=== PATIENT | male | born 1970 | race Caucasian/White ===

== ENCOUNTER → 2020-10-15 | Outpatient (CLI) ==
[~2020-10-15] MED LIST: ERGO500029; GABA600T4 PO; HORI600T; OXYC1TAB23
== END ==
LOC: M LABSMTC 12:06 → EDUNIT# 12:20
PROVIDERS: ATTEND Anesthesiology
DX: Z01.818 Encounter for other preprocedural examination (principal); Z20.822 Contact with and (suspected) exposure to COVID-19

== ENCOUNTER 2020-10-20 08:54 | Day surgery (SDC) | payer OTHER ==
[~2020-10-20] VITALS: Ht 198.1 cm; Wt 97.4 kg
[~2020-10-20 08:54] MED LIST changes: -GABA600T4 PO; +LIDOCAINE 1% MDV 20ML VIAL SQ PRN; +LR 1,000 ML IV ONE
[2020-10-20] MEDS ORDERED: GABA600T4 PO (09:09)
[2020-10-20 09:54] LABS: HEMATOCRIT 36.2 % (42.0-52.0); HEMOGLOBIN 11.1 g/dl (13.5-17.5); MEAN CORPUSCULAR HEMOGLOBIN 22.9 pg (27.0-33.0); MEAN CORPUSCULAR HGB CONC 30.7 g/dl (32.0-36.5); MEAN CORPUSCULAR VOLUME 74.6 fl (80.0-96.0); PLATELET COUNT, AUTOMATED 212 10^3/uL (150-450); RED BLOOD COUNT 4.85 10^6/uL (4.30-6.10); WHITE BLOOD COUNT 3.6 10^3/uL (4.0-10.0)
[2020-10-20] MEDS ORDERED: propofoL 200 MG/20 ML VIAL As Ordered ONE (10:24)
[2020-10-20] MEDS ORDERED: fentaNYL 100 MCG/2 ML INJECTION (J3010) As Ordered ONE (10:24)
[2020-10-20] MEDS ORDERED: ONDANSETRON 4MG/2ML VIAL As Ordered ONE (10:24)
[2020-10-20] MEDS ORDERED: dexameTHASONE 4 MG/ML 1ML VIAL (J1100 PER 1MG) As Ordered ONE ×2 (10:24→10:25)
[2020-10-20] MEDS ORDERED: MIDAZOLAM INJ 2MG/2ML VIAL (J2250 PER 1MG) As Ordered ONE (10:24)
[2020-10-20] MEDS ORDERED: ROCURONIUM BROMIDE 50 MG/5 ML VIAL As Ordered ONE (10:24)
[2020-10-20] MEDS ORDERED: LIDOCAINE 2% 100MG/5ML SDV (FOR ANES.) As Ordered ONE (10:24)
[2020-10-20] MEDS ORDERED: LIDOCAINE W/EPINEPHRINE 1% 20ML VIAL As Ordered ONE (11:42)
[2020-10-20] MEDS ORDERED: EPINEPHrine 1MG/ML INJ 30ML MD-VIAL As Ordered ONE (11:42)
[2020-10-20] MEDS ORDERED: METHYLENE BLUE 0.5% (5MG/ML) 10 ML AMP (PROVAYBLUE) As Ordered ONE (11:43)
[2020-10-20] MEDS ORDERED: SUGAMMADEX SODIUM 500 MG/5 ML VIAL (BRIDION) As Ordered ONE (12:13)
[2020-10-20] MEDS ORDERED: ACETAMINOPHEN 1000MG 100ML IV BTL (OFIRMEV) (J0131 PER 10MG) As Ordered ONE (12:13)
[2020-10-20] MEDS ORDERED: ONDANSETRON 4MG/2ML VIAL IV PRN (13:35)
[2020-10-20] MEDS ORDERED: LR 1,000 ML IV SCH (13:35)
[2020-10-20] MEDS: oxyCODONE 5MG TAB PO PRN ×2 (13:43→14:18)
[2020-10-20] MEDS: fentaNYL 100 MCG/2 ML INJECTION (J3010) IV PRN ×4 (13:44→14:18)
[2020-10-20 15:00] VITALS: BP 182/98
--- NOTE | 2020-10-20 16:43 | RO ---
OPERATIVE NOTE DATE OF OPERATION: 10/20/2020 PREOPERATIVE DIAGNOSIS: Nasal septal deviation, nasal valve collapse, chronic rhinitis. POSTOPERATIVE DIAGNOSIS: Nasal septal deviation, nasal valve collapse, chronic rhinitis. PROCEDURE: Septal ___, nasal valve repair and turbinectomy. FINDINGS: There was septal deviation toward the left side. SURGEON: Dr. Esdras Gutierrez Under general anesthesia with the patient intubated, patient prepped and draped in the usual manner. I used pledgets of adrenal 1:100,000, infiltrated with lidocaine with epinephrine. I made an incision in the left side and elevated a subperichondral plane. A severed quadrangular cartilage from the maxillary ethmoid plate and then removed portions of both the above. Once this was done, then I used a chisel to remove a spur. The septum was straight, so I closed that incision with 4-0 Monocryl and 3-0 chromic. I made an incision anterior inferior to the ____ and anterior to the inferior aspect of the nasal bone. I elevated the mucosa and then removed portions of the solis. Once that was done, then I sutured that incision, closed with 4-0 Monocryl. Then I elevated the inferior aspect of the periosteum off of the nasal bone, drilled two holes on both sides, and then put a Monocryl from the lateral aspect of the lower lateral cartilage around nasal bone then back. Patient tolerated the procedure well. Less than 20 mL estimated blood loss. Patient extubated and transferred to the recovery room in excellent condition.
[2020-10-21] MEDS ORDERED: UNRESOLVED CLARIFICATION ENTRY XX SCH (00:01)
== END 2020-10-20 15:15 | disposition home or self-care (01) ==
LOC: M SDC 08:54
PROVIDERS: ATTEND Otolaryngology
DX: J34.2 Deviated nasal septum (principal); J31.0 Chronic rhinitis; D64.9 Anemia, unspecified; Z98.84 Bariatric surgery status; Z88.0 Allergy status to penicillin; Z88.2 Allergy status to sulfonamides; Z79.899 Other long term (current) drug therapy
CPT/HCPCS: 30140; 30465; 30520; 36415; 85027; 88300; J0131; J1100; J2250; J2405; J3010